=== PATIENT | male | born 1935 | race Hispanic/Latino ===

== ENCOUNTER 2021-03-16 08:17 | Inpatient (IN) | payer MEDICARE, OTHER ==
[~2021-03-16] VITALS: Ht 160 cm; Wt 85.7 kg
[~2021-03-16 08:17] MED LIST: DOXAZOSIN MESYLA2 MG PO; FEOSOL325 MG PO; FUROSEMIDE20 MG PO; HYDROCHLOROTHIA50 MG PO; ISOSORBIDE DINI20 MG PO; LOSARTAN POTASS25 MG PO; MIRALAX17 GM PO; PEPCID20 MG PO; POTASSIUM CHLO20 ME1 PO; SIMVASTATIN10 MG PO; SODIUM BICARBO650 MG PO; Simethicone PO; TRANDATE100 MG PO; VIMOVO PO; ZESTRIL10 MG PO
[2021-03-16 08:41] LABS: BASOPHILS # (AUTO) 0.1 (0.0-0.1); BASOPHILS % 0.3 % (0.0-1.0); EOSINOPHILS # (AUTO) 0.1 (0.0-0.4); EOSINOPHILS % 0.7 % (0.0-6.0); HEMATOCRIT 43.5 % (38.2-49.6); HEMOGLOBIN 14.2 g/dL (14.0-18.0); LYMPHOCYTES # (AUTO) 1.1 (1.0-3.2); LYMPHOCYTES % 6.2 % (18.0-39.1); MEAN CORPUSCULAR HEMOGLOBIN 30.5 pg (28-32); MEAN CORPUSCULAR HGB CONC 32.6 g/dL (31-35); MEAN CORPUSCULAR VOLUME 93.3 fL (81-99); MONOCYTES % 5.4 % (4.4-11.3); NEUTROPHILS # (AUTO) 15.9 (2.1-6.9); NEUTROPHILS % 86.9 % (38.7-80.0); PLATELET COUNT 199 x10e3/uL (140-360); RED BLOOD COUNT 4.66 x10e6/uL (4.3-5.7); RED CELL DISTRIBUTION WIDTH 13.2 % (11.7-14.4)
[2021-03-16 08:55] LABS: ANION GAP 10.4 mmol/L (8-16); BLOOD UREA NITROGEN 18 mg/dL (7-26); BUN/CREATININE RATIO 20 (6-25); CALCIUM 9.5 mg/dL (8.4-10.2); CARBON DIOXIDE 26 mmol/L (22-29); CHLORIDE 105 mmol/L (98-107); EST GLOMERULAR FILTRATION RATE 80 ML/MIN (60-); GLUCOSE 131 mg/dL (74-118); POTASSIUM 4.4 mmol/L (3.5-5.1); SODIUM 137 mmol/L (136-145)
[2021-03-16 09:11] LABS: CLARITY,URINE CLOUDY (CLEAR); COLOR,URINE YELLOW (YELLOW)
[2021-03-16 09:12] LABS: KETONES,URINE TRACE (NEGATIVE); LEUKOCYTE ESTERASE ,URINE MODERATE (NEGATIVE); NITRITE,URINE NEGATIVE (NEGATIVE); PROTEIN,URINE DIPSTICK NEGATIVE (NEGATIVE); URINE UROBILINOGEN 0.2 mg/dL (0.2 - 1)
[2021-03-16 09:15] LABS: BACTERIA,URINE FEW /HPF; EPITHELIAL CELLS,URINE FEW /LPF; WBC,URINE (MAN) >50 /HPF (0-5)
[2021-03-16] MEDS ORDERED: SODIUM CHLORIDE 0.9% 1000ML 1,000 ML IV STA (09:56)
[2021-03-16] MEDS ORDERED: CEFTRIAXONE 1 GM VIAL ONE (10:13)
[2021-03-16] MEDS ORDERED: SODIUM CHLORIDE 0.9% 1000ML 1,000 ML ONE (10:14)
[2021-03-16] MEDS ORDERED: CEFTRIAXONE 1 GM in SODIUM CHLORIDE 0.9% 50ML 50 ML IV ONE (10:30)
[2021-03-16] MEDS ORDERED: Vancomycin IV 1 GM in SODIUM CHLORIDE 0.9% 250ML 250 ML IV ONE (11:45)
[2021-03-16] MEDS ORDERED: ONDANSETRON HCL INJ 2MG/ML 2ML 2 MG/ML VIAL IV PRN (12:00)
[2021-03-16 12:28] LABS: ALANINE AMINOTRANSFERASE 18 IU/L (0-55); ALBUMIN 3.9 g/dL (3.5-5.0); ALBUMIN/GLOBULIN RATIO 1.1 (0.8-2.0); ALKALINE PHOSPHATASE 109 IU/L (40-150); CREATINE KINASE 100 IU/L (30-200); MAGNESIUM 1.8 MG/DL (1.3-2.1)
[2021-03-16] MEDS ORDERED: VITAMIN D3 PO (12:48)
[2021-03-16] MEDS ORDERED: FAMOTIDINE20 MG PO (12:51)
[2021-03-16 13:00] VITALS: BP 126/61
[2021-03-16 13:30] VITALS: BP 126/61
[2021-03-16 14:00] VITALS: BP 126/61
[2021-03-16 16:00] VITALS: BP 143/63
[2021-03-16 16:07] LABS: CREATINE KINASE MB 2.9 ng/mL (0-5.0)
[2021-03-16] MEDS ORDERED: FEROSUL325 MG PO (16:22)
[2021-03-16] MEDS ORDERED: POLYETHYLENE GL17 GM PO (16:28)
[2021-03-16] MEDS ORDERED: ISOSORBIDE DINI20 MG PO (16:28)
[2021-03-16] MEDS ORDERED: LABETALOL HCL100 MG PO (16:28)
[2021-03-16 20:00] VITALS: BP 127/64
[2021-03-16] MEDS ORDERED: SODIUM CHLORIDE 0.9% 250ML 250 ML ONE (20:52)
[2021-03-16] MEDS: CEFTRIAXONE 1 GM in SODIUM CHLORIDE 0.9% 50ML 50 ML IV SCH (21:00)
[2021-03-16 22:59] VITALS: BP 127/64
[2021-03-17] VITALS: BP 129/57
[2021-03-17 04:00] VITALS: BP 142/62
[2021-03-17 06:55] LABS: BASOPHILS # (AUTO) 0.1 (0.0-0.1); BASOPHILS % 0.4 % (0.0-1.0); EOSINOPHILS # (AUTO) 0.7 (0.0-0.4); EOSINOPHILS % 5.4 % (0.0-6.0); HEMATOCRIT 39.4 % (38.2-49.6); HEMOGLOBIN 12.8 g/dL (14.0-18.0); LYMPHOCYTES # (AUTO) 1.5 (1.0-3.2); LYMPHOCYTES % 11.4 % (18.0-39.1); MEAN CORPUSCULAR HEMOGLOBIN 30.3 pg (28-32); MEAN CORPUSCULAR HGB CONC 32.5 g/dL (31-35); MEAN CORPUSCULAR VOLUME 93.1 fL (81-99); NEUTROPHILS # (AUTO) 9.6 (2.1-6.9); NEUTROPHILS % 74.3 % (38.7-80.0); PLATELET COUNT 192 x10e3/uL (140-360); RED BLOOD COUNT 4.23 x10e6/uL (4.3-5.7); RED CELL DISTRIBUTION WIDTH 13.3 % (11.7-14.4)
[2021-03-17 07:11] LABS: ALBUMIN 3.4 g/dL (3.5-5.0); ALBUMIN/GLOBULIN RATIO 1.1 (0.8-2.0); ANION GAP 15.1 mmol/L (8-16); CALCIUM 8.9 mg/dL (8.4-10.2); CREATININE, SERUM 0.8 mg/dL (0.72-1.25); POTASSIUM 4.1 mmol/L (3.5-5.1)
[2021-03-17 08:00] VITALS: BP 127/63
[2021-03-17] MEDS: CEFTRIAXONE 1 GM in SODIUM CHLORIDE 0.9% 50ML 50 ML IV SCH ×2 (08:16→21:00)
[2021-03-17 08:26] VITALS: BP 127/63
[2021-03-17] MEDS: POLYETHYLENE GLYCOL 3350 17 GM PACK PO SCH (09:54)
[2021-03-17] MEDS: ISOSORBIDE DINITRATE 20 MG TAB PO SCH (09:54)
[2021-03-17] MEDS: FUROSEMIDE 20 MG TAB PO SCH (09:54)
[2021-03-17] MEDS: FAMOTIDINE 20 MG TAB PO SCH (09:54)
[2021-03-17] MEDS: BENZONATATE 100 MG CAP PO PRN ×2 (09:55→21:40)
[2021-03-17] MEDS: LABETALOL HCL 100 MG TAB PO SCH (09:55)
[2021-03-17] MEDS: LISINOPRIL 10 MG TAB PO SCH (09:55)
[2021-03-17] MEDS: SODIUM BICARBONATE 650 MG TAB PO SCH ×2 (09:55→16:29)
[2021-03-17] MEDS: GUAIFENESIN 200 MG/10 ML UDC PO SCH ×2 (09:55→22:00)
[2021-03-17 12:00] VITALS: BP 94/53
[2021-03-17 16:00] VITALS: BP 108/56
[2021-03-18] VITALS (8 sets, daily range): BP systolic 96–133; BP diastolic 46–75
[2021-03-18] MEDS: GUAIFENESIN 200 MG/10 ML UDC PO SCH ×3 (06:00→23:30)
[2021-03-18 08:36] LABS: BASOPHILS # (AUTO) 0.1 (0.0-0.1); BASOPHILS % 0.6 % (0.0-1.0); EOSINOPHILS # (AUTO) 0.7 (0.0-0.4); EOSINOPHILS % 8.3 % (0.0-6.0); HEMATOCRIT 38.5 % (38.2-49.6); HEMOGLOBIN 12.2 g/dL (14.0-18.0); LYMPHOCYTES # (AUTO) 1.5 (1.0-3.2); LYMPHOCYTES % 18.9 % (18.0-39.1); MEAN CORPUSCULAR HEMOGLOBIN 30.2 pg (28-32); MEAN CORPUSCULAR HGB CONC 31.7 g/dL (31-35); MEAN CORPUSCULAR VOLUME 95.3 fL (81-99); MONOCYTES % 12.1 % (4.4-11.3); NEUTROPHILS # (AUTO) 4.8 (2.1-6.9); NEUTROPHILS % 59.9 % (38.7-80.0); PLATELET COUNT 196 x10e3/uL (140-360); RED BLOOD COUNT 4.04 x10e6/uL (4.3-5.7); RED CELL DISTRIBUTION WIDTH 13.4 % (11.7-14.4)
[2021-03-18] MEDS: CEFTRIAXONE 1 GM in SODIUM CHLORIDE 0.9% 50ML 50 ML IV SCH ×2 (09:44→23:30)
[2021-03-18] MEDS: FUROSEMIDE 20 MG TAB PO SCH (09:44)
[2021-03-18] MEDS: ISOSORBIDE DINITRATE 20 MG TAB PO SCH (09:44)
[2021-03-18] MEDS: POLYETHYLENE GLYCOL 3350 17 GM PACK PO SCH (09:44)
[2021-03-18] MEDS: FAMOTIDINE 20 MG TAB PO SCH (09:44)
[2021-03-18] MEDS: LORATADINE 10 MG TAB PO SCH (09:44)
[2021-03-18] MEDS: LISINOPRIL 10 MG TAB PO SCH (09:45)
[2021-03-18] MEDS: LABETALOL HCL 100 MG TAB PO SCH (09:45)
[2021-03-18] MEDS: SODIUM BICARBONATE 650 MG TAB PO SCH ×2 (09:45→17:33)
[2021-03-18] MEDS ORDERED: SODIUM CHLORIDE 0.9% 250ML 250 ML ONE (20:54)
[2021-03-19] VITALS (9 sets, daily range): BP systolic 120–151; BP diastolic 52–70
[2021-03-19] MEDS: GUAIFENESIN 200 MG/10 ML UDC PO SCH ×3 (06:15→21:54)
[2021-03-19 08:04] LABS: BASOPHILS # (AUTO) 0.1 (0.0-0.1); BASOPHILS % 0.7 % (0.0-1.0); EOSINOPHILS # (AUTO) 0.5 (0.0-0.4); EOSINOPHILS % 6.1 % (0.0-6.0); HEMATOCRIT 38.9 % (38.2-49.6); HEMOGLOBIN 12.6 g/dL (14.0-18.0); LYMPHOCYTES # (AUTO) 1.4 (1.0-3.2); LYMPHOCYTES % 17.3 % (18.0-39.1); MEAN CORPUSCULAR HEMOGLOBIN 30.4 pg (28-32); MEAN CORPUSCULAR HGB CONC 32.4 g/dL (31-35); MONOCYTES # (AUTO) 0.7 (0.2-0.8); MONOCYTES % 8.9 % (4.4-11.3); NEUTROPHILS # (AUTO) 5.6 (2.1-6.9); NEUTROPHILS % 66.5 % (38.7-80.0); PLATELET COUNT 213 x10e3/uL (140-360); RED BLOOD COUNT 4.14 x10e6/uL (4.3-5.7); RED CELL DISTRIBUTION WIDTH 13.2 % (11.7-14.4)
[2021-03-19 08:23] LABS: ANION GAP 15.1 mmol/L (8-16); CALCIUM 8.5 mg/dL (8.4-10.2); CREATININE, SERUM 0.75 mg/dL (0.72-1.25); POTASSIUM 4.1 mmol/L (3.5-5.1)
[2021-03-19] MEDS: SODIUM BICARBONATE 650 MG TAB PO SCH ×2 (09:15→16:55)
[2021-03-19] MEDS: LORATADINE 10 MG TAB PO SCH (09:15)
[2021-03-19] MEDS: FAMOTIDINE 20 MG TAB PO SCH (09:15)
[2021-03-19] MEDS: POLYETHYLENE GLYCOL 3350 17 GM PACK PO SCH (09:15)
[2021-03-19] MEDS: FUROSEMIDE 20 MG TAB PO SCH (09:16)
[2021-03-19] MEDS: ISOSORBIDE DINITRATE 20 MG TAB PO SCH (09:16)
[2021-03-19] MEDS: LISINOPRIL 10 MG TAB PO SCH (09:16)
[2021-03-19] MEDS: LABETALOL HCL 100 MG TAB PO SCH (09:17)
[2021-03-19] MEDS: BALSAM PERU/CASTOR OIL 60 GM OINT...G. TP SCH (09:17)
[2021-03-19] MEDS: CEFTRIAXONE 1 GM in SODIUM CHLORIDE 0.9% 50ML 50 ML IV SCH ×2 (10:22→21:54)
[2021-03-19] MEDS ORDERED: SODIUM CHLORIDE 0.9% 250ML 250 ML ONE (10:23)
[2021-03-20] VITALS (8 sets, daily range): BP systolic 94–157; BP diastolic 51–83
[2021-03-20] MEDS: GUAIFENESIN 200 MG/10 ML UDC PO SCH ×3 (07:22→22:00)
[2021-03-20] MEDS: CEFTRIAXONE 1 GM in SODIUM CHLORIDE 0.9% 50ML 50 ML IV SCH ×2 (08:40→21:00)
[2021-03-20] MEDS: LORATADINE 10 MG TAB PO SCH (08:40)
[2021-03-20] MEDS: FAMOTIDINE 20 MG TAB PO SCH (08:41)
[2021-03-20] MEDS: LISINOPRIL 10 MG TAB PO SCH (08:41)
[2021-03-20] MEDS: ISOSORBIDE DINITRATE 20 MG TAB PO SCH (08:41)
[2021-03-20] MEDS: SODIUM BICARBONATE 650 MG TAB PO SCH ×2 (08:41→17:26)
[2021-03-20] MEDS: FUROSEMIDE 20 MG TAB PO SCH (08:41)
[2021-03-20] MEDS: LABETALOL HCL 100 MG TAB PO SCH (08:42)
[2021-03-20] MEDS: BALSAM PERU/CASTOR OIL 60 GM OINT...G. TP SCH (08:42)
[2021-03-20] MEDS: POLYETHYLENE GLYCOL 3350 17 GM PACK PO SCH (08:48)
[2021-03-21] VITALS: BP 127/52
[2021-03-21 05:18] VITALS: BP 143/56
[2021-03-21] MEDS: GUAIFENESIN 200 MG/10 ML UDC PO SCH ×3 (06:23→20:16)
[2021-03-21] MEDS ORDERED: ALBUTEROL/IPRATROPIUM 3 ML NEB NEB ONE (07:30)
[2021-03-21 08:52] VITALS: BP 140/63
[2021-03-21] MEDS: LORATADINE 10 MG TAB PO SCH (09:07)
[2021-03-21] MEDS: ISOSORBIDE DINITRATE 20 MG TAB PO SCH (09:08)
[2021-03-21] MEDS: POLYETHYLENE GLYCOL 3350 17 GM PACK PO SCH (09:10)
[2021-03-21] MEDS: FAMOTIDINE 20 MG TAB PO SCH (09:10)
[2021-03-21] MEDS: FUROSEMIDE 20 MG TAB PO SCH (09:10)
[2021-03-21] MEDS: SODIUM BICARBONATE 650 MG TAB PO SCH ×2 (09:11→16:42)
[2021-03-21] MEDS: LISINOPRIL 10 MG TAB PO SCH (09:11)
[2021-03-21] MEDS: LABETALOL HCL 100 MG TAB PO SCH (09:12)
[2021-03-21] MEDS: BALSAM PERU/CASTOR OIL 60 GM OINT...G. TP SCH (09:12)
[2021-03-21] MEDS: CEFTRIAXONE 1 GM in SODIUM CHLORIDE 0.9% 50ML 50 ML IV SCH ×2 (09:12→20:16)
[2021-03-21 13:45] VITALS: BP 90/51
[2021-03-21 16:48] VITALS: BP 121/56
[2021-03-21 20:00] VITALS: BP 121/55
[2021-03-22] VITALS (8 sets, daily range): BP systolic 100–153; BP diastolic 57–78
[2021-03-22] MEDS: GUAIFENESIN 200 MG/10 ML UDC PO SCH ×3 (06:09→22:00)
[2021-03-22] MEDS: LORATADINE 10 MG TAB PO SCH (08:20)
[2021-03-22] MEDS: ISOSORBIDE DINITRATE 20 MG TAB PO SCH (08:21)
[2021-03-22] MEDS: SODIUM BICARBONATE 650 MG TAB PO SCH ×2 (08:22→16:14)
[2021-03-22] MEDS: FUROSEMIDE 20 MG TAB PO SCH (08:22)
[2021-03-22] MEDS: POLYETHYLENE GLYCOL 3350 17 GM PACK PO SCH (08:22)
[2021-03-22] MEDS: FAMOTIDINE 20 MG TAB PO SCH (08:22)
[2021-03-22] MEDS: LISINOPRIL 10 MG TAB PO SCH (08:22)
[2021-03-22] MEDS: BALSAM PERU/CASTOR OIL 60 GM OINT...G. TP SCH (08:23)
[2021-03-22] MEDS: LABETALOL HCL 100 MG TAB PO SCH (08:23)
[2021-03-22] MEDS: CEFTRIAXONE 1 GM in SODIUM CHLORIDE 0.9% 50ML 50 ML IV SCH ×2 (08:23→21:00)
[2021-03-23] VITALS: BP 132/62
[2021-03-23 02:20] VITALS: BP 132/62
[2021-03-23 04:00] VITALS: BP 154/67
[2021-03-23] MEDS: GUAIFENESIN 200 MG/10 ML UDC PO SCH (05:37)
[2021-03-23 08:00] VITALS: BP 152/74
[2021-03-23] MEDS ORDERED: CEPHALEXIN500 MG PO (08:17)
[2021-03-23] MEDS: CEFTRIAXONE 1 GM in SODIUM CHLORIDE 0.9% 50ML 50 ML IV SCH (09:00)
[2021-03-23] MEDS: ISOSORBIDE DINITRATE 20 MG TAB PO SCH (09:00)
[2021-03-23] MEDS: LORATADINE 10 MG TAB PO SCH (09:00)
[2021-03-23] MEDS: FUROSEMIDE 20 MG TAB PO SCH (09:00)
== END 2021-03-23 10:22 | disposition home or self-care (01) | DRG 871 ==
LOC: ER 08:35 → ERHOLD 11:48 → MED/SURG3 13:15
PROVIDERS: ADMIT Internal Medicine; ATTEND Internal Medicine
DX: A41.9 Sepsis, unspecified organism (principal); J96.00 Acute respiratory failure, unspecified whether with hypoxia or hypercapnia; N39.0 Urinary tract infection, site not specified; Z20.822 Contact with and (suspected) exposure to COVID-19; E66.9 Obesity, unspecified; Z68.33 Body mass index [BMI] 33.0-33.9, adult; J22 Unspecified acute lower respiratory infection; E78.5 Hyperlipidemia, unspecified; Z74.09 Other reduced mobility
CPT/HCPCS: 36415; 71045; 80048; 80053; 81001; 82550; 82553; 83518; 83605; 83735; 83880; 84484; 85025; 87040; 87070; 87071; 87086; 87205; 87400; 93005; 97139; 99251; 99284; J0456; J0696; J3370; J7030; J7050; U0002

== ENCOUNTER 2021-08-08 16:45 | Emergency (ER) | payer MEDICARE, OTHER ==
[~2021-08-08] VITALS: Ht 160 cm; Wt 85.7 kg
[~2021-08-08 16:45] MED LIST changes: +CEPHALEXIN500 MG PO; +FAMOTIDINE20 MG PO; +FEROSUL325 MG PO; +LABETALOL HCL100 MG PO; +POLYETHYLENE GL17 GM PO; +VITAMIN D3 PO
== END 2021-08-08 21:24 | disposition home or self-care (01) ==
LOC: ER 17:19
DX: S00.83XA Contusion of other part of head, initial encounter (principal); S00.31XA Abrasion of nose, initial encounter; S60.419A Abrasion of unspecified finger, initial encounter; S80.812A Abrasion, left lower leg, initial encounter; S80.811A Abrasion, right lower leg, initial encounter; W05.1XXA Fall from non-moving nonmotorized scooter, initial encounter; Y92.89 Other specified places as the place of occurrence of the external cause; I10 Essential (primary) hypertension; E78.5 Hyperlipidemia, unspecified; I50.9 Heart failure, unspecified
CPT/HCPCS: 70450; 70486; 72125; 99283

== ENCOUNTER 2024-02-13 00:17 | Emergency (ER) | payer MEDICARE, OTHER ==
[~2024-02-13] VITALS: Ht 160 cm; Wt 85.7 kg
[2024-02-13] MEDS ORDERED: SODIUM CHLORIDE 0.9% 1000ML 1,000 ML ONE (01:01)
[2024-02-13] MEDS ORDERED: SODIUM CHLORIDE 0.9% 500ML 500 ML ONE (01:01)
[2024-02-13 01:03] LABS: BASOPHILS % 0.1 % (0.0-1.0); HEMATOCRIT 30.1 % (38.2-49.6); HEMOGLOBIN 9.7 g/dL (14.0-18.0); LYMPHOCYTES # (AUTO) 1.3 (1.0-3.2); LYMPHOCYTES % 8.1 % (18.0-39.1); MEAN CORPUSCULAR HEMOGLOBIN 31.3 pg (28-32); MEAN CORPUSCULAR HGB CONC 32.2 g/dL (31-35); MEAN CORPUSCULAR VOLUME 97.1 fL (81-99); MONOCYTES % 6.6 % (4.4-11.3); NEUTROPHILS # (AUTO) 13.2 (2.1-6.9); NEUTROPHILS % 84.8 % (38.7-80.0); PLATELET COUNT 154 x10e3/uL (140-360); RED CELL DISTRIBUTION WIDTH 13.7 % (11.7-14.4); WHITE BLOOD COUNT 15.56 x10e3/uL (4.8-10.8)
[2024-02-13] MEDS: SODIUM CHLORIDE 0.9% 500ML 500 ML IV ONE ×2 (01:03→03:21)
[2024-02-13] MEDS: SODIUM CHLORIDE 0.9% 1000ML 1,000 ML IV ONE (01:03)
[2024-02-13 01:20] LABS: ALBUMIN 2.6 g/dL (3.5-5.0); ANION GAP 9.3 mmol/L (8-16); BILIRUBIN,TOTAL 0.6 mg/dL (0.2-1.2); CALCIUM 7.6 mg/dL (8.4-10.2); CREATININE, SERUM 0.48 mg/dL (0.72-1.25); POTASSIUM 3.3 mmol/L (3.5-5.1); TOTAL PROTEIN 5.1 g/dL (6.5-8.1)
[2024-02-13 01:32] LABS: TROPONIN I 0.489 ng/mL (0-0.300)
[2024-02-13] MEDS ORDERED: IOPAMIDOL 370 MG/ML 100 ML INFUS..BTL INJ ONE (01:40)
[2024-02-13 02:03] LABS: INR 1.64; PROTHROMBIN TIME 20.2 seconds (11.9-14.5)
[2024-02-13 02:04] LABS: PARTIAL THROMBOPLASTIN TIME 45.4 seconds (23.8-35.5)
[2024-02-13] MEDS: SODIUM CHLORIDE 0.9% 1000ML 1,000 ML IV SCH (04:11)
[2024-02-13 06:22] VITALS: PULSE 82; RESP 18; TEMP 98; O2SAT 100
== END 2024-02-13 06:35 | disposition other institution (70) ==
LOC: ER 00:23
DX: R53.1 Weakness (principal); I21.4 Non-ST elevation (NSTEMI) myocardial infarction; R79.89 Other specified abnormal findings of blood chemistry; I10 Essential (primary) hypertension; J44.9 Chronic obstructive pulmonary disease, unspecified; I50.9 Heart failure, unspecified; E78.5 Hyperlipidemia, unspecified; Z99.81 Dependence on supplemental oxygen; R94.31 Abnormal electrocardiogram [ECG] [EKG]
CPT/HCPCS: 36415; 71045; 71275; 74174; 80053; 82550; 83605; 83690; 84484; 85025; 85610; 85730; 87040; 87071; 87205; 93005; 99284; J2543; J7030; J7040; Q9967